=== PATIENT | male | born 1970 | race Caucasian/White ===

== ENCOUNTER 2022-12-22 03:53 | Emergency (ER) | payer BC, OTHER ==
--- NOTE | 2022-12-22 04:17 | ED Physician Documentation ---
History of Present Illness - Stated complaint Stated Complaint: SOA/TINGLE LFT ARM - Chief complaint Chief Complaint: General - History obtained from History obtained from: Patient - Additonal information Additional information: 52-year-old man with history of high blood pressure and sleep apnea presents after waking from sleep with shortness of breath and tingling in the fingers. He went back to sleep but then woke up again with the shortness of breath and indigestion. He decided to come to the emergency department to be evaluated. At that time.Denies chest pain, nausea, diaphoresis. Denies family history of cardiac disease. Daily cigar smoker. Review of Systems Constitutional: denies: Fever, Chills Cardiac: denies: Chest pain / pressure Respiratory: reports: Dyspnea. denies: Cough GI: denies: Nausea, Vomiting PD PAST MEDICAL HISTORY - Present Medications Home Medications: Ambulatory Orders Medication Instructions Recorded Confirmed Lisinopril [Zestril] 20 mg PO DAILY 12/22/22 12/22/22 Omeprazole Magnesium 20 mg PO DAILY 12/22/22 12/22/22 hydroCHLOROthiazide [Hydrodiuril] 25 mg PO ONCE 12/22/22 12/22/22 - Allergies Allergies/Adverse Reactions: Allergies Allergy/AdvReac Type Severity Reaction Status Date / Time No Known Drug Allergies Allergy Verified 12/22/22 04:00 PD ED PE NORMAL - Vitals Vital signs reviewed: Yes - General General: Alert and oriented X 3, No acute distress, Well developed/nourished - HEENT HEENT: Atraumatic, PERRL, EOMI - Neck Neck: Supple, no meningeal sign - Cardiac Cardiac: RRR - Respiratory Respiratory: No respiratory distress, Clear bilaterally - Abdomen Abdomen: Non tender, Non distended Results - Vitals Vitals: Vital Signs - 24 hr 12/22/22 12/22/22 03:57 04:27 Temperature 36.3 C L Heart Rate 73 68 Respiratory 19 12 Rate Blood Pressure 148/91 H 138/89 H O2 Saturation 100 98 Oxygen O2 Source Room air - Labs Labs: Laboratory Tests 12/22/22 12/22/22 12/22/22 04:21 04:21 04:21 WBC 6.8 RBC 4.73 Hgb 14.2 Hct 42.0 MCV 88.8 MCH 30.0 MCHC 33.8 RDW 12.7 Plt Count 203 MPV 11.7 H Neut # (Auto) 3.5 Lymph # (Auto) 2.6 [facility] # (Auto) 0.5 Eos # (Auto) 0.2 Baso # (Auto) 0.0 Absolute Nucleated RBC 0.00 Nucleated RBC % 0.0 Sodium 137 Potassium 3.6 Chloride 102 Carbon Dioxide 25 Anion Gap 10.0 BUN 16 Creatinine 1.1 Estimated GFR (MDRD) 70 L Glucose 168 H Calcium 9.3 Total Bilirubin 0.8 AST 38 ALT 53 Alkaline Phosphatase 51 Troponin I High Sens 6.4 Total Protein 7.6 Albumin 4.4 Globulin 3.2 Albumin/Globulin Ratio 1.4 Lipase 40 PD Medical Decision Making - ED course ED course: 52-year-old man presents for evaluation of shortness of breath and indigestion. His initial EKG was normal sinus rhythm at 65 with normal intervals, taken at 4:07 AM. Plan to complete chest x-ray, undergo cardiac monitoring, and have a CBC, abdominal panel, and troponin drawn. On initial arrival, patient states that he is feeling fine at present but is feeling a little bit of "resistance" when taking a deep breath. We will reevaluate pending results. Labwork was benign, CXR without acute findings per my interpretation And independent evaluation of outside radiologist. Cardiac monitoring unremarkable. Patient will f/u with his PCP. referral to sleep specialist provided. return precautions given. Departure - Departure Disposition: 01 Home, Self Care Clinical Impression: Shortness of breath, Indigestion, Tingling in extremities Condition: Stable Instructions: ED Dyspnea Shortness of Breath, CPAP Comments: You were seen in the emergency department for medical evaluation. Your lab work, EKG, and chest x-ray uncovered no emergent findings. Please follow-up with your primary care provider. I am also enclosing a referral for sleep specialist. Return to the emergency department for any new or worsening symptoms or other concerns. [facility] sleep specialist [address] [place] [address]. [address], [place] [phone]
[2022-12-22 04:26] LABS: BASOPHILS % (AUTO) 0.6 %; EOSINOPHILS # (AUTO) 0.2 10^3/uL (0.0-0.7); EOSINOPHILS % (AUTO) 2.5 %; HGB - HEMOGLOBIN 14.2 g/dL (14.0-18.0); LYMPHOCYTES # (AUTO) 2.6 10^3/uL (1.5-3.5); LYMPHOCYTES % (AUTO) 38.5 %; MEAN CORPUSCULAR HGB CONC 33.8 g/dL (32.0-36.0); MEAN CORPUSCULAR VOLUME 88.8 fL (80.0-94.0); MEAN PLATELET VOLUME 11.7 fL (7.4-11.4); MONOCYTES # (AUTO) 0.5 10^3/uL (0.0-1.0); MONOCYTES % (AUTO) 6.8 %; NEUTROPHILS # (AUTO) 3.5 10^3/uL (1.5-6.6); NEUTROPHILS % (AUTO) 51.5 %; PLT - PLATELET COUNT 203 10^3/uL (130-450); RED BLOOD COUNT 4.73 10^6/uL (4.70-6.10); RED CELL DISTRIBUTION WIDTH 12.7 % (12.0-15.0); WHITE BLOOD COUNT 6.8 x10^3/uL (4.8-10.8)
[2022-12-22 04:41] LABS: ALBUMIN 4.4 g/dL (3.2-5.5); ALBUMIN/GLOBULIN RATIO 1.4 (1.0-2.2); BILIRUBIN,TOTAL 0.8 mg/dL (0.2-1.0); CALCIUM 9.3 mg/dL (8.5-10.3); CREATININE 1.1 mg/dL (0.6-1.2); POTASSIUM 3.6 mmol/L (3.5-5.0); TOTAL PROTEIN 7.6 g/dL (6.7-8.2)
[2022-12-22 05:28] VITALS: BP 142/90
--- NOTE | 2022-12-22 07:59 | XRAY Report ---
PROCEDURE: Chest 1 View X-Ray INDICATIONS: Chest Pain TECHNIQUE: One view of the chest was acquired. COMPARISON: None. FINDINGS: Surgical changes and devices: None. Lungs and pleura: No pleural effusions or pneumothorax. Lungs are clear. Mediastinum: Mediastinal contours appear normal. Heart size is normal. Bones and chest wall: No suspicious bony lesions. Overlying soft tissues appear unremarkable. IMPRESSION: No acute cardiopulmonary process. Findings are concordant with preliminary interpretation provided by [facility]. Reviewed by: Jaleel Kim MD on 12/22/2022 7:58 AM PDT Approved by: Jaleel Kim MD on 12/22/2022 7:58 AM PDT Station ID: [id number]
== END 2022-12-22 06:18 | disposition home or self-care (01) ==
LOC: ED 03:53
DX: R06.02 Shortness of breath (principal); R20.2 Paresthesia of skin; K30 Functional dyspepsia; I10 Essential (primary) hypertension; Z79.899 Other long term (current) drug therapy
CPT/HCPCS: 36415; 80053; 83690; 84484; 85025; 93005; 99283; 99284

== ENCOUNTER 2024-05-20 16:24 | Outpatient (CLI) | payer BC ==
[2024-05-20 16:50] LABS: BASOPHILS % (AUTO) 0.6 %; EOSINOPHILS # (AUTO) 0.1 10^3/uL (0.0-0.7); HCT - HEMATOCRIT 44.2 % (42.0-52.0); HGB - HEMOGLOBIN 14.7 g/dL (14.0-18.0); LYMPHOCYTES # (AUTO) 2.5 10^3/uL (1.5-3.5); LYMPHOCYTES % (AUTO) 36.7 %; MEAN CORPUSCULAR HEMOGLOBIN 30.2 pg (27.0-31.0); MEAN CORPUSCULAR HGB CONC 33.3 g/dL (32.0-36.0); MEAN CORPUSCULAR VOLUME 90.9 fL (80.0-94.0); MEAN PLATELET VOLUME 11.3 fL (7.4-11.4); MONOCYTES # (AUTO) 0.6 10^3/uL (0.0-1.0); MONOCYTES % (AUTO) 8.1 %; NEUTROPHILS # (AUTO) 3.6 10^3/uL (1.5-6.6); NEUTROPHILS % (AUTO) 52.3 %; PLT - PLATELET COUNT 206 10^3/uL (130-450); RED BLOOD COUNT 4.86 10^6/uL (4.70-6.10); RED CELL DISTRIBUTION WIDTH 12.6 % (12.0-15.0); WHITE BLOOD COUNT 6.9 x10^3/uL (4.8-10.8)
[2024-05-20 17:04] LABS: ALBUMIN 4.6 g/dL (3.2-5.5); ALBUMIN/GLOBULIN RATIO 1.7 (1.0-2.2); BILIRUBIN,TOTAL 0.4 mg/dL (0.2-1.0); CALCIUM 9.6 mg/dL (8.5-10.3); CREATININE 1.1 mg/dL (0.6-1.3); POTASSIUM 4.1 mmol/L (3.5-4.5); TOTAL PROTEIN 7.3 g/dL (6.4-8.9)
[2024-05-20 19:38] LABS: ESTIMATED AVERAGE GLUCOSE 131 mg/dL (70-100); HEMOGLOBIN A1c% 6.2 % (4.27-6.07)
== END 2024-05-20 16:25 | disposition home or self-care (01) ==
LOC: LAB 16:24
PROVIDERS: ATTEND Registered Nurse
DX: R35.0 Frequency of micturition (principal); R10.9 Unspecified abdominal pain
CPT/HCPCS: 36415; 80053; 83036; 84153; 85025